=== PATIENT | male | born 1945 | race Caucasian/White ===

== ENCOUNTER → 2017-10-19 | Outpatient (CLI) | payer MEDICARE ==
[2017-10-19 12:49] LABS: Basophils # (A) 0.1 k/uL (0-0.2); Basophils % (A) 1 %; Eosinophils # (A) 0.2 k/uL (0-0.7); Eosinophils % (A) 3 %; HCT 49.9 % (39.0-53.0); HGB 15.9 gm/dL (13.0-17.5); Lymphocytes # (A) 1.5 k/uL (1.0-4.8); Lymphocytes % (A) 22 %; MCH 29.2 pg (25.0-35.0); MCHC 31.9 g/dL (31.0-37.0); MCV 91.6 fL (80.0-100.0); Mean Platelet Volume 7.4; Monocytes # (A) 0.5 k/uL (0-1.0); Monocytes % (A) 7 %; Neutrophils # (A) 4.6 k/uL (1.3-7.7); Neutrophils % (A) 65 %; Platelet Count 244 k/uL (150-450); RBC 5.44 m/uL (4.30-5.90); RDW 13.4 % (11.5-15.5); WBC 7.1 k/uL (3.8-10.6)
[2017-10-19 13:07] LABS: Potassium 4.7 mmol/L (3.5-5.1)
== END | disposition home or self-care (01) ==
LOC: LABPAT 12:20
PROVIDERS: ATTEND Orthopaedic Surgery
DX: Z01.812 Encounter for preprocedural laboratory examination (principal); G56.01 Carpal tunnel syndrome, right upper limb
CPT/HCPCS: 36415; 80051; 85025

== ENCOUNTER 2017-11-03 11:02 | Day surgery (SDC) | payer MEDICARE ==
[2017-11-01 09:51] VITALS: BMI 27.8
--- NOTE | 2017-11-02 14:21 | HP ---
HISTORY AND PHYSICAL DATE OF SURGERY: 11/03/2017 Cameron Tracy is a 72-year-old patient seen with symptomatic right carpal tunnel syndrome. We discussed options for treatment. He elected to proceed with decompression right median nerve. Consent was obtained. PAST MEDICAL HISTORY: Hyperlipidemia. PAST SURGICAL HISTORY: Noncontributory. DAILY MEDICATIONS: Simvastatin. ALLERGIES: None reported. SOCIAL HISTORY: Patient denies current tobacco use. PHYSICAL EVALUATION OF HIS RIGHT UPPER EXTREMITY: He has a positive carpal compression, carpal Tinel's, exacerbating numbness, tingling to the median nerve distribution. He has decreased light touch of the right thumb, index and middle fingers. He has good perfusion distally and a good radial pulse present. He is nontender along the A1 jake sites. Radiographs of the right hand and wrist revealed carpometacarpal osteoarthritis as well as some osteoarthritic changes of the metacarpophalangeal joints involving the right index and right middle fingers. IMPRESSION: Symptomatic right carpal tunnel syndrome. PLAN: Decompression right median nerve. MMODL / IJN: [id number] /
[~2017-11-03 11:02] MED LIST: HYDROmorphone 0.5 MG/0.5 ML SYRINGE IVP PRN; LACTATED RINGERS 1,000 ML IV SCH; ONDANSETRON 4 MG/2 ML VIAL IVP ONE; ceFAZolin IN SWFI 2 GM/20 ML SYRINGE IVP ONE; fentaNYL (PF) 50 MCG/ML 2 ML AMP IV PRN
[2017-11-03 12:59] VITALS: TEMP 98.5
[2017-11-03] MEDS ORDERED: ONDANSETRON 4 MG/2 ML VIAL ONE (13:10)
[2017-11-03] MEDS ORDERED: ONDANSETRON 4 MG/2 ML VIAL IVP ONE (13:11)
[2017-11-03] MEDS ORDERED: PROPOFOL 10 MG/ML 20 ML VIAL IV ONE (13:42)
[2017-11-03] MEDS ORDERED: ROPIVACAINE 5MG/ML 20ML VIAL MISCELLANE ONE (13:42)
[2017-11-03] MEDS ORDERED: LIDOCAINE 1% INJ 10MG/ML (20 ML MDV) ONE (13:42)
[2017-11-03] MEDS ORDERED: MIDAZOLAM 2 MG/2 ML VIAL ONE (13:42)
[2017-11-03] MEDS ORDERED: fentaNYL (PF) 50 MCG/ML 2 ML AMP ONE (13:42)
--- NOTE | 2017-11-03 14:12 | P.OP ---
Date of Procedure: 11/03/17 Preoperative Diagnosis: Right carpal tunnel syndrome Postoperative Diagnosis: Same Procedure(s) Performed: Decompression right median nerve Anesthesia: MAC, local Surgeon: Fer Armstrong Estimated Blood Loss (ml): 0 Pathology: none sent Condition: stable Disposition: PACU Indications for Procedure: 72-year-old patient seen with symptomatic right carpal tunnel syndrome. After treatment options were discussed, he elected to proceed with decompression. Operative Findings: see description of procedure Description of Procedure: The patient was taken to the operative suite. Patient received preoperative IV antibiotics. Patient underwent IV sedation by the department of anesthesia. A well-padded tourniquet was placed proximal right upper extremity. The right upper extremity was prepped and draped in the normal sterile orthopedic fashion. The proposed incision site was infiltrated with 10 mL half percent plain ropivacaine. Once sufficient local analgesia was noted the extremity was elevated and tourniquet insufflated to 250. An incision was now made beginning at the distal volar wrist crease extending distally approximately 3 cm in line with the fourth metacarpal sharply through skin. Dissection was taken through the subcu soft tissues then through the palmar fascia to the transverse carpal ligament. I now incised the transverse carpal ligament. I completed the release proximally and distally with blunt Metzenbaums. There was good complete release of the transverse carpal ligament noted with good decompression of the nerve. We had good hemostasis. The wound was irrigated. The skin margins were approximated nylon suture. Sterile dressings were applied. The tourniquet was released with immediate capillary refill of all digits noted. Sterile web roll and Slade bandage were now applied. The patient was then awakened, transferred to a bed and recovery in stable condition.
[2017-11-03 14:27] VITALS: RESP 16
[2017-11-03 14:51] VITALS: BP 111/68; PULSE 60
== END 2017-11-03 15:30 | disposition home or self-care (01) ==
LOC: OR 11:02
PROVIDERS: ATTEND Orthopaedic Surgery
DX: G56.01 Carpal tunnel syndrome, right upper limb (principal); M19.041 Primary osteoarthritis, right hand; E78.5 Hyperlipidemia, unspecified; I10 Essential (primary) hypertension; Z79.899 Other long term (current) drug therapy; Z79.82 Long term (current) use of aspirin
CPT/HCPCS: 64721; J2250; J2405; J2001; J3010; J2704; J2795

== ENCOUNTER → 2018-07-12 | Day surgery (SDC) | payer MEDICARE ==
[2018-07-07 08:53] VITALS: BMI 27.8
[~2018-07-12] MED LIST changes: +ALPRAZolam 0.25 MG TAB PO PRN; +ALPRAZolam 0.5 MG TAB PO PRN; +ASPIRIN 325 MG TAB PO STA; +ATORVASTATIN 80 MG TAB PO STA; -HYDROmorphone 0.5 MG/0.5 ML SYRINGE IVP PRN; +ISOSORBIDE MONONITRATE ER 30 MG TAB.ER.24H PO SCH; -LACTATED RINGERS 1,000 ML IV SCH; +LIDOCAINE 1% INJ 10MG/ML (20 ML MDV) ONE; +LIDOCAINE 1% INJ 10MG/ML (20 ML MDV) SQ ONE; +MIDAZOLAM (PF) 2 MG/2 ML VIAL IV ONE; +NITROGLYCERIN SL TABS 0.4 MG TAB SUBLINGUAL PRN; -ONDANSETRON 4 MG/2 ML VIAL IVP ONE; +RX INFO: IV CONTRAST WAS GIVEN 1 EACH MISC MISCELLANE PRN; +SODIUM CHLORIDE 0.9% 1,000 ML in EMPTY BAG 1 BAG IV ONE; -ceFAZolin IN SWFI 2 GM/20 ML SYRINGE IVP ONE; +fentaNYL (PF) 50 MCG/ML 2 ML AMP IV ONE; -fentaNYL (PF) 50 MCG/ML 2 ML AMP IV PRN; +fentaNYL (PF) 50 MCG/ML 2 ML AMP ONE
[2018-07-12 09:47] VITALS: TEMP 98.3
[2018-07-12 10:22] LABS: Basophils # (A) 0.1 k/uL (0-0.2); Basophils % (A) 1 %; Eosinophils # (A) 0.2 k/uL (0-0.7); Eosinophils % (A) 3 %; HCT 45.9 % (39.0-53.0); Lymphocytes # (A) 1.7 k/uL (1.0-4.8); Lymphocytes % (A) 26 %; MCHC 32.6 g/dL (31.0-37.0); Mean Platelet Volume 7.9; Monocytes # (A) 0.4 k/uL (0-1.0); Monocytes % (A) 7 %; Neutrophils # (A) 3.9 k/uL (1.3-7.7); Neutrophils % (A) 61 %; Platelet Count 199 k/uL (150-450); RBC 5.16 m/uL (4.30-5.90); RDW 14.3 % (11.5-15.5); WBC 6.5 k/uL (3.8-10.6)
[2018-07-12 10:34] LABS: Anion Gap 6 mmol/L; Blood Urea Nitrogen 19 mg/dL (9-20); Calcium 9.6 mg/dL (8.4-10.2); Carbon Dioxide 26 mmol/L (22-30); Chloride 107 mmol/L (98-107); Glucose 126 mg/dL (74-99); Sodium 139 mmol/L (137-145)
[2018-07-12 10:45] LABS: Potassium 5.2 mmol/L (3.5-5.1)
--- NOTE | 2018-07-12 11:53 | CC ---
CARDIAC CATHETERIZATION REPORT INDICATION: Unstable angina. PROCEDURE NOTE: After obtaining informed consent, left heart catheterization and coronary angiogram were performed via the right femoral artery using standard Margie catheters. The patient tolerated the procedure well without any obvious immediate complications. A femoral angiogram was performed and Angio-Seal was deployed for hemostasis. Patient received moderate conscious sedation. Total sedation time was 17 minutes. FINDINGS: 1. HEMODYNAMICS: Left ventricular end-diastolic pressure is 14 to 16 mm. There is no significant gradient across the aortic valve. 2. LEFT VENTRICULOGRAM: Left ventriculogram is not performed. 3. ANGIOGRAPHIC DATA: Left Main Coronary Artery: Left main coronary artery is a normal-sized vessel. It appears calcified, but is free of significant stenosis. Divides into left anterior descending coronary artery and circumflex coronary artery. LAD shows [id number]-ffinovpy atherosclerotic plaque and calcification, but no focal areas of stenosis. Circumflex coronary artery is a nondominant vessel. There is moderate area of stenosis involving the ostial portion of the small caliber diagonal OM branch. Right coronary artery is a large dominant vessel. It shows a 30% to 40% stenosis in the proximal part. CONCLUSION: Mild nonobstructive coronary artery disease involving all the 3 vessels. PLAN: I reviewed angiographic data with the patient and told him that his management is going to be in the form of risk factor modification and optimal medical therapy including aspirin, nitrates, beta blockers and statin. I advised him on regular exercise. ALEXANDRE / REBECAN: [id number] /
[2018-07-12 15:16] VITALS: BP 130/75; PULSE 68; RESP 18
== END ==
LOC: CATHCVL 08:53
PROVIDERS: ATTEND Internal Medicine Cardiovascular Disease
DX: I25.110 Atherosclerotic heart disease of native coronary artery with unstable angina pectoris (principal); E78.2 Mixed hyperlipidemia; I35.1 Nonrheumatic aortic (valve) insufficiency; Z79.82 Long term (current) use of aspirin; Z79.899 Other long term (current) drug therapy
CPT/HCPCS: 93458; 80048; 85025; C1760; C1894; C1769; J2001; J3010; J2250

== ENCOUNTER → 2021-07-16 | Outpatient (CLI) | payer MEDICARE ==
[2021-07-17 01:47] LABS: Basophils # (A) 0.05 X 10*3/uL (0.00-0.10); Basophils % (A) 0.8 %; Eosinophils # (A) 0.15 X 10*3/uL (0.04-0.35); Eosinophils % (A) 2.5 %; HCT 45.2 % (39.6-50.0); HGB 14.6 g/dL (13.0-17.0); Immature Grans, Automated 0.3 %; Lymphocytes # (A) 1.37 X 10*3/uL (0.90-5.00); Lymphocytes % (A) 22.9 %; MCH 29.5 pg (27.0-32.0); MCHC 32.3 g/dL (32.0-37.0); MCV 91.3 fL (80.0-97.0); Monocytes # (A) 0.53 X 10*3/uL (0.20-1.00); Monocytes % (A) 8.8 %; NRBC Per 100 WBC 0 /100 WBCS (0.0-0.0); Neutrophils # (A) 3.87 X 10*3/uL (1.80-7.70); Neutrophils % (A) 64.7 %; Platelet Count 202 X 10*3/uL (140-440); RBC 4.95 X 10*6/uL (4.40-5.60); RDW 13.3 % (11.5-14.5); WBC 5.99 X 10*3/uL (4.50-10.00)
[2021-07-17 03:54] LABS: Anion Gap 12.9 mmol/L (10.00-18.00); Carbon Dioxide 24.1 mmol/L (20.0-27.5); Potassium 4.3 mmol/L (3.5-5.5)
== END | disposition home or self-care (01) ==
LOC: LABPAT 16:25
PROVIDERS: ATTEND Orthopaedic Surgery
DX: Z01.812 Encounter for preprocedural laboratory examination (principal); G56.02 Carpal tunnel syndrome, left upper limb
CPT/HCPCS: 80051; 85025

== ENCOUNTER 2021-07-30 09:52 | Day surgery (SDC) | payer MEDICARE ==
--- NOTE | 2021-07-29 10:42 | HP ---
HISTORY AND PHYSICAL DATE OF SURGERY: 07/30/2021 Cameron Tracy is a 76-year-old gentleman seen with symptomatic left carpal tunnel syndrome. We discussed options for treatment. He elected to proceed with decompression of left median nerve. Consent was obtained. PAST MEDICAL HISTORY: Noncontributory. PAST SURGICAL HISTORY: Right carpal tunnel release. DAILY MEDICATIONS: Aspirin and multivitamins. ALLERGIES: NONE. SOCIAL HISTORY: He denies tobacco use. PHYSICAL EVALUATION OF LEFT HAND: He has positive carpal compression with carpal Tinel's exacerbating numbness and tingling throughout the median nerve distribution. He does have some decreased sensation throughout the median distribution. Nontender along the A1 jake areas. Good perfusion distally. Good radial pulse present. X-rays of his left hand and wrist reveal some osteoarthritic changes. IMPRESSION: Left carpal tunnel syndrome. PLAN: Decompression left median nerve. MMODL / IJN: [id number] /
[~2021-07-30 09:52] MED LIST changes: -ALPRAZolam 0.25 MG TAB PO PRN; -ALPRAZolam 0.5 MG TAB PO PRN; -ASPIRIN 325 MG TAB PO STA; -ATORVASTATIN 80 MG TAB PO STA; +DEXAMETHASONE SOD PHOSPHATE 4 MG/ML 1 ML VIAL IV ONE; +HYDROmorphone 0.5 MG/0.5 ML SYRINGE IVP PRN; -ISOSORBIDE MONONITRATE ER 30 MG TAB.ER.24H PO SCH; +LACTATED RINGERS 1,000 ML IV SCH; +LIDOCAINE 1% (10MG/ML) FOR IV START INTRADERMA PRN; -LIDOCAINE 1% INJ 10MG/ML (20 ML MDV) ONE; -LIDOCAINE 1% INJ 10MG/ML (20 ML MDV) SQ ONE; -MIDAZOLAM (PF) 2 MG/2 ML VIAL IV ONE; +MIDAZOLAM 2 MG/2 ML VIAL IV PRN; -NITROGLYCERIN SL TABS 0.4 MG TAB SUBLINGUAL PRN; +ONDANSETRON 4 MG/2 ML VIAL IVP ONE; -RX INFO: IV CONTRAST WAS GIVEN 1 EACH MISC MISCELLANE PRN; -SODIUM CHLORIDE 0.9% 1,000 ML in EMPTY BAG 1 BAG IV ONE; -fentaNYL (PF) 50 MCG/ML 2 ML AMP IV ONE; -fentaNYL (PF) 50 MCG/ML 2 ML AMP ONE
[2021-07-30 10:26] VITALS: RESP 16; TEMP 96.9
[2021-07-30] MEDS ORDERED: fentaNYL (PF) 50 MCG/ML 2 ML AMP ONE (12:05)
[2021-07-30] MEDS ORDERED: MIDAZOLAM 2 MG/2 ML VIAL ONE (12:05)
[2021-07-30] MEDS ORDERED: PROPOFOL 10 MG/ML 20 ML VIAL IV ONE (12:05)
[2021-07-30] MEDS ORDERED: BUPIVACAINE (PF) 0.25% 30 ML VIAL SQ ONE ×2 (12:18→12:22)
--- NOTE | 2021-07-30 12:40 | P.OP ---
Date of Procedure: 07/30/21 Preoperative Diagnosis: Left carpal tunnel syndrome Postoperative Diagnosis: Left carpal tunnel syndrome Procedure(s) Performed: Decompression left median nerve Anesthesia: MAC, local Surgeon: Fer Armstrong Estimated Blood Loss (ml): 0 Pathology: none sent Condition: stable Disposition: PACU Indications for Procedure: 76-year-old patient seen with symptomatic left carpal tunnel syndrome. After treatment options were discussed, he elected to proceed with decompression left median nerve Operative Findings: See description of procedure Description of Procedure: Patient was taken to the operative suite. He underwent IV sedation by the department of anesthesia. He received preoperative IV antibiotics. A well- padded tourniquet placed proximal left upper extremity. The left upper extremity was prepped and draped in the normal sterile orthopedic fashion. We infiltrated the proposed incision site with 10 mL quarter percent plain Marcaine. When sufficient local analgesia was noted we elevated the extremity and insufflated the tourniquet to 250. I now made an incision beginning at the distal volar wrist crease extending distally approximately 3 cm in line with the fourth metacarpal sharply through skin. We dissected down through the palmar fascia to the transverse carpal ligament. I made a small incision through the central portion of the transverse carpal ligament. I now completed the release proximally and distally with blunt Metzenbaums. I noted complete release of the transverse carpal ligament with good decompression of the nerve. We had good hemostasis. The wound was irrigated. The skin margins were proximal nylon suture. I applied sterile dressings followed by sterile web roll and Coban. The patient was awakened and transferred to recovery in stable satisfactory condition.
[2021-07-30 12:58] VITALS: BP 134/68; PULSE 73
== END 2021-07-30 13:25 | disposition home or self-care (01) ==
LOC: OR 09:52
PROVIDERS: ATTEND Orthopaedic Surgery
DX: G56.02 Carpal tunnel syndrome, left upper limb (principal); I10 Essential (primary) hypertension; E78.5 Hyperlipidemia, unspecified; Z79.82 Long term (current) use of aspirin; Z98.890 Other specified postprocedural states; Z97.2 Presence of dental prosthetic device (complete) (partial)
CPT/HCPCS: 64721; J2250; J1100; J0690; J2405; J3010; J2704

== ENCOUNTER 2023-09-16 10:13 | Emergency (ER) | payer MEDICARE ==
[2023-09-16 10:20] VITALS: RESP 18; TEMP 97.9
[2023-09-16] MEDS: IBUPROFEN 800 MG TAB PO STA (11:23)
[2023-09-16] MEDS: LIDOCAINE 4% PATCH TOPICAL ONE (11:24)
[2023-09-16] MEDS: methylPREDNISolone SOD SUCCI 125 MG/2 ML VIAL IM ONE (11:24)
[2023-09-16] MEDS: CYCLOBENZAPRINE 5 MG TAB PO STA (11:24)
--- NOTE | 2023-09-16 12:16 | CT ---
EXAMINATION TYPE: CT lumbar spine wo con DATE OF EXAM: 09/16/2023 12:07 PM COMPARISON: None HISTORY: low back pain CT DLP: 915.6 mGycm Automated exposure control for dose reduction was used. Unenhanced CT of the lumbar spine was performed. Bone and soft tissue window settings are submitted as well as coronal and sagittal reconstructions. Findings: The lumbar vertebral segments are normal in height and there is no acute fracture. There is a grade 1 anterolisthesis of L4-5 and S1. There is there is moderate disc space narrowing and vacuum phenomenon at the T12/L1 level and L1/L2 l evels.. There is mild disc space narrowing and vacuum phenomenon at the L to 3 and L3-4 levels. There is mild disc space narrowing at the L4-5 level. There are no large lumbar disc herniations. Secondary to circumferential disc bulge and marked thickening of the ligamentum flavum, there is ora re spinal stenosis at the L2-3, L3-4, L4-5 levels. There is mild to moderate facet degeneration at the L3-4, L4-5 and L5-S1 levels. The visualized sacrum and SI joints normal. There is no significant bony neural foraminal encroachment. IMPRESSION: 1. 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 2. Mild to moderate facet degeneration lower lumbar spine. 3. severe spinal stenosis at the L2-3, L3-4 and L4-5 levels 4. No large lumbar disc herniations. 5. No bony neural foraminal encroachment. 6. Grade 1 anterolisthesis of L5 on S1.
--- NOTE | 2023-09-16 12:41 | ED ---
General Adult HPI - General Chief complaint: Back Pain/Injury Stated complaint: sciatic nerve pain Time Seen by Provider: 09/16/23 11:06 Source: patient, RN notes reviewed, old records reviewed Mode of arrival: ambulatory Limitations: no limitations - History of Present Illness Initial comments: Patient is a 78-year-old male who presents emergency department complaining of back pain. States that over the last few days he has been experiencing right buttock pain with radiation down the posterior right leg. Began a few days ago but is progressively gotten worse. Denies any saddle paresthesias. Denies lower extremity paralysis. Denies bowel or urinary incontinence or retention. No obvious falls or traumatic injury. Presents for further evaluation at this time. - Related Data Home Medications Medication Instructions Recorded Confirmed Aspirin 81 mg PO DAILY 11/01/17 07/28/21 Fish Oil/Dha/Epa [Fish Oil 1,200 1 each PO DAILY 11/01/17 07/28/21 mg Fish Oil] Multivitamin [Men's Multi-Vitamin] 1 each PO DAILY 11/01/17 07/28/21 Previous Rx's Medication Instructions Recorded Cyclobenzaprine [Flexeril] 5 mg PO TID PRN 7 Days #21 tablet 09/16/23 Lidocaine 5% Patch [Lidoderm 5% 1 patch TOPICAL DAILY PRN 14 Days 09/16/23 Patch] #14 patch Allergies Allergy/AdvReac Type Severity Reaction Status Date / Time No Known Allergies Allergy Verified 09/16/23 10:20 Review of Systems ROS Statement: Those systems with pertinent positive or pertinent negative responses have been documented in the HPI. Review of Systems: CONST: Denies fever EYES: Denies blurry vision ENT: Denies nasal congestion C/V: Denies Chest pain RESP: Denies shortness of breath GI: Denies abdominal pain : Denies dysuria SKIN: Denies rash. MSK: Endorses back pain NEURO: Denies headache ROS Other: All systems not noted in ROS Statement are negative. Past Medical History Past Medical History: Hyperlipidemia, Hypertension Additional Past Medical History / Comment(s): arthritis undefined. BP states BP has been good lately( 07/27/21 128/82). small hiatal hernia. recent wt loss. History of Any Multi-Drug Resistant Organisms: None Reported Past Surgical History: Appendectomy, Hernia Repair, Orthopedic Surgery Additional Past Surgical History / Comment(s): rt carpal tunnel surgery. COLONOSCOPY (4) every 5 yrs for family hx. rt inguinal Past Anesthesia/Blood Transfusion Reactions: No Reported Reaction Past Psychological History: No Psychological Hx Reported Smoking Status: Former smoker Past Alcohol Use History: None Reported Past Drug Use History: None Reported - Past Family History Mother Family Medical History: Cancer Additional Family Medical History / Comment(s): multiple myloma Father Family Medical History: Cancer Additional Family Medical History / Comment(s): color cancer General Exam - General Exam Comments Initial Comments: General: Appears in no acute distress. HEAD: Normal with no signs of head trauma. EYES: EOMI. ENT: Hearing grossly intact. RESPIRATORY: No respiratory distress. C/V: Regular rate and rhythm. ABD: Abdomen is nondistended. EXT: No obvious deformity.. Midline lumbar spine tenderness to palpation with some radiation to the right paraspinal muscles. Mostly in the paraspinal muscles. Neurovascular intact throughout. SKIN: No rashes or lesions observed on exposed skin. NEURO: Alert and oriented. No focal deficits. Limitations: no limitations Course Vital Signs 09/16/23 09/16/23 10:18 12:59 Temperature 97.9 F Pulse Rate 83 77 Respiratory 18 18 Rate Blood Pressure 167/84 158/76 O2 Sat by Pulse 98 97 Oximetry Medical Decision Making - Medical Decision Making Was pt. sent in by a medical professional or institution (CELSO Camarena, BILL OF MATERIALS CLERK, urgent care, hospital, or [place] health care facility...) When possible be specific @ -No Did you speak to anyone other than the patient for history (EMS, parent, family, police, friend...)? What history was obtained from this source @ -No Did you review nursing and triage notes (agree or disagree)? Why? @ -I reviewed and agree with nursing and triage notes Were old charts reviewed (outside hosp., previous admission, EMS record, old EKG, old radiological studies, urgent care reports/EKG's, [place] health care facility records)? Report findings @ -No old charts were reviewed Differential Diagnosis (chest pain, altered mental status, abdominal pain women, abdominal pain men, vaginal bleeding, weakness, fever, dyspnea, syncope, headache, dizziness, GI bleed, back pain, seizure, CVA, palpatations, mental health, musculoskeletal)? @ -Differential Musculoskeletal Muscular strain, contusion, ligament sprain, fracture, arthritis, septic arthritis, bursitis, cellulitis, muscle spasm, nerve compression, DVT, arterial occlusion, herpes zoster, electrolyte abnormality, tumor.... This is not meant to be in all inclusive list EKG interpreted by me (3pts min.). @ -None done X-rays interpreted by me (1pt min.). @ -None done CT interpreted by me (1pt min.). @ -Lumbar spine CT reveals spinal canal stenosis but no other obvious acute process. Patient has chronic degenerative changes throughout. U/S interpreted by me (1pt. min.). @ -None done What testing was considered but not performed or refused? (CT, X-rays, U/S, labs)? Why? @ -None What meds were considered but not given or refused? Why? @ -None Did you discuss the management of the patient with other professionals (professionals i.e. , PA, BILL OF MATERIALS CLERK, lab, RT, psych nurse, social worker palliative care, supervisor accounting clerks, teacher, cash management officer, vocational case manager)? Give summary @ -No Was smoking cessation discussed for >3mins.? @ -No Was critical care preformed (if so, how long)? @ -No Were there social determinants of health that impacted care today? How? (Homelessness, low income, unemployed, alcoholism, drug addiction, transportation, low edu. Level, literacy, decrease access to med. care, residential, rehab)? @ -No Was there de-escalation of care discussed even if they declined (Discuss DNR or withdrawal of care, Hospice)? DNR status @ -No What co-morbidities impacted this encounter? (DM, HTN, Smoking, COPD, CAD, Cancer, CVA, ARF, Chemo, Hep., AIDS, mental health diagnosis, sleep apnea, morbid obesity)? @ -None Was patient admitted / discharged? Hospital course, mention meds given and route, prescriptions, significant lab abnormalities, going to OR and other pertinent info. @ -Patient presents with sciatica type pain. We will obtain CT imaging and patient will be given analgesia medications as well as IM steroids. Patient in agreement this plan. Vital signs within acceptable limits. No concern for cauda equina syndrome at this time. CT imaging shows degenerative changes as well as spinal canal stenosis. On reevaluation is feeling proved. We discussed workup. He will be given a disc as well as follow-up with orthopedics. Recommended follow-up if symptoms do not improve. He was in agreement this plan. Strict return precautions discussed. I will provide the patient with a prescription for Flexeril. I instructed the patient to follow up with their PCP in the next 1-3 days.. I explained that the patient should return to the emergency department if they experience any worsening symptoms. Strict return precautions were discussed with the patient. The patient expressed understanding of these instructions. I answered all questions that the patient had. The patient was discharged home in good condition with their prescriptions and follow up information. Undiagnosed new problem with uncertain prognosis? @ -No Drug Therapy requiring intensive monitoring for toxicity (Heparin, Nitro, Insulin, Cardizem)? @ -No Were any procedures done? @ -No Diagnosis/symptom? @ -Lumbar back pain, sciatica Acute, or Chronic, or Acute on Chronic? @ -Acute Uncomplicated (without systemic symptoms) or Complicated (systemic symptoms)? @ -Uncomplicated Side effects of treatment? @ -No Exacerbation, Progression, or Severe Exacerbation? @ -No Poses a threat to life or bodily function? How? (Chest pain, USA, MD, pneumonia, PE, COPD, DKA, ARF, appy, cholecystitis, CVA, Diverticulitis, Homicidal, Suicidal, threat to staff... and all critical care pts) @ -No Disposition Clinical Impression: Lumbar back pain, Sciatica Disposition: HOME SELF-CARE Condition: Good Instructions (If sedation given, give patient instructions): Sciatica (ED), Acute Low Back Pain (ED) Prescriptions: Cyclobenzaprine [Flexeril] 5 mg PO TID PRN 7 Days #21 tablet PRN Reason: Pain Lidocaine 5% Patch [Lidoderm 5% Patch] 1 patch TOPICAL DAILY PRN 14 Days #14 patch PRN Reason: Pain Is patient prescribed a controlled substance at d/c from ED?: No Referrals: Fredrick Bledsoe MD [Primary Care Provider] - 1-2 days Sidney Alvarez DO [Doctor of Osteopathic Medicine] - 1-2 days Time of Disposition: 12:41
[2023-09-16 13:00] VITALS: BP 158/76; PULSE 77
== END 2023-09-16 13:00 | disposition home or self-care (01) ==
LOC: EC 10:13 → SUPCPDRO 10:13 → EC 13:00
DX: M54.41 Lumbago with sciatica, right side (principal); Z87.891 Personal history of nicotine dependence
CPT/HCPCS: 72131; 99284; 96372; J2919